=== PATIENT | male | born 1995 | race Caucasian/White ===

== ENCOUNTER 2017-12-29 11:22 | Emergency (ER) | payer OTHER ==
[~2017-12-29] VITALS: Ht 182.9 cm; Wt 77.6 kg
[2017-12-29] MEDS ORDERED: KEFLEX500 M1 PO (13:03)
[2017-12-29 13:15] VITALS: BP 128/80
== END 2017-12-29 13:16 | disposition home or self-care (01) ==
LOC: M.ERS 11:22
DX: S61.212A Laceration without foreign body of right middle finger without damage to nail, initial encounter (principal); F17.200 Nicotine dependence, unspecified, uncomplicated; W26.8XXA Contact with other sharp object(s), not elsewhere classified, initial encounter; Y93.89 Activity, other specified; Y92.89 Other specified places as the place of occurrence of the external cause; Y99.8 Other external cause status